=== PATIENT | male | born 1945 | race Caucasian/White ===

== ENCOUNTER 2016-08-04 11:34 | Inpatient (IN) | payer OTHER ==
[2016-08-04] MEDS ORDERED: ASPIRIN EC 325 MG TAB PO ONE (11:42)
[2016-08-04] MEDS ORDERED: NS 1,000 ML IV ONE (11:42)
[2016-08-04] MEDS ORDERED: diphenhydrAMINE 25 MG CAP PO ONE (11:42)
[2016-08-04] MEDS ORDERED: FAMOTIDINE 20 MG TAB PO ONE (11:42)
[2016-08-04] MEDS ORDERED: DIAZEPAM 5 MG TAB PO ONE (11:42)
--- NOTE | 2016-08-04 11:56 | CPEKG ---
Heart Rate: 58 RR Interval: 1034 P-R Interval: 232 QRSD Interval: 150 QT Interval: 472 QTC Interval: 464 P Wayan: 12 QRS Wayan: 56 T Wave Wayan: 29 EKG Severity - ABNORMAL ECG - EKG Impression: ATRIAL-SENSED VENTRICULAR-PACED RHYTHM Electronically Signed By: Alfa Fung 05-Aug-2016 13:02:42
[2016-08-04 12:13] LABS: % IMMATURE GRANULYOCYTES 0.2 % (0.0-1.1); ABSOLUTE IMMATURE GRANULOCYTES 0.01 10^3/uL (0.00-0.10); ADD DIFF? NO; ADD MORPH? NO; ADD SCAN? NO; ATYPICAL LYMPHOCYTE FLAG 0 (0-99); FRAGMENT RBC FLAG 0 (0-99); HEMATOCRIT 46.7 % (40.0-51.0); HEMOGLOBIN 15.7 g/dL (13.7-17.5); LEFT SHIFT FLG 0 (0-99); LIPEMIA HEMOLYSIS FLAG 80 (0-99); MEAN CELL HEMOGLOBIN 31.2 pg (27.9-34.1); MEAN CELL HEMOGLOBIN CONCENTR. 33.6 g/dL (32.4-36.7); MEAN CELL VOLUME 92.7 fL (81.5-99.8); MEAN PLATELET VOLUME 10.3 fL (8.7-11.7); PLATELET CLUMPS FLAG 0 (0-99); PLATELET COUNT 184 10^3/uL (150-400); RED BLOOD CELL COUNT 5.04 10^6/uL (4.40-6.38); RED CELL DISTRIBUTION WIDTH 12.7 % (11.5-15.2)
[2016-08-04] MEDS ORDERED: LIDOCAINE 1% 30 ML SDV ONE (12:17)
[2016-08-04] MEDS ORDERED: fentaNYL 100 MCG/2 ML INJ ONE (12:18)
[2016-08-04] MEDS ORDERED: MIDAZOLAM 2 MG/2 ML VIAL ONE ×2 (12:18→13:56)
[2016-08-04] MEDS ORDERED: IOPAMIDOL (ISOVUE 370) 100 ML BTL IV ONE (12:18)
[2016-08-04 12:27] LABS: INR 0.98 (0.83-1.16); PROTIME(PATIENT) 12.9 SEC (12.0-15.0)
[2016-08-04 12:39] LABS: ANION GAP 12 mEq/L (8-16); CALCIUM 9.3 mg/dL (8.5-10.4); CARBON DIOXIDE 24 mEq/l (22-31); CHLORIDE 104 mEq/L (97-110); CHOLESTEROL 147 mg/dL (140-220); CHOLESTEROL/HDL RATIO 2.49 RATIO (1.00-4.97); CREATININE 1.5 mg/dL (0.7-1.3); GLOMERULAR FILTRATION RATE 46; GLUCOSE 95 mg/dL (70-100); HIGH DENSITY LIPOPROTEIN 59 mg/dL (40-65); LDL/HDL RATIO 1.27 RATIO (1.00-3.64); LOW DENSITY LIPOPROTEIN 75 mg/dL (80-100); MAGNESIUM 2.3 mg/dL (1.6-2.3); NON-HIGH DENSITY LIPOPROTEIN 88 mg/dL (90-129); POTASSIUM 4.4 mEq/L (3.5-5.2); SODIUM 140 mEq/L (134-144); TRIGLYCERIDE 67 mg/dL (40-150); VERY LOW DENSITY LIPOPROTEINS 13 mg/dL (8-25)
[2016-08-04] MEDS ORDERED: VERAPAMIL 5 MG/2 ML VIAL ONE (13:17)
[2016-08-04] MEDS ORDERED: HEPARIN 10,000 UNIT/10 ML MDV ONE (13:17)
[2016-08-04] MEDS ORDERED: NITROGLYCERIN 1,500 MCG/15 ML VIAL MISC ONE (14:14)
[2016-08-04] MEDS ORDERED: NITROGLYCERIN 0.4 MG BTL SL PRN (14:42)
[2016-08-04] MEDS ORDERED: ONDANSETRON 4 MG/2 ML VIAL IVP PRN (14:42)
[2016-08-04] MEDS ORDERED: ATROPINE SULFATE 1 MG/10 ML SYR IVP PRN (14:42)
--- NOTE | 2016-08-04 14:42 | PDDXCAT ---
Diagnostic Cath Note - . Date: 08/04/16 Security Guard: [employer] Mechanical Engineer: Bogdan Indication: Non-sustained (<30 sec) polymorphic ventricular tachycardia High-risk criteria on non-invasive testing: stress-induced large perfusion defect (particularly if anterior) - Procedure Access: right wrist Procedure: left heart catheterization, coronary angiography, left ventriculogram - Materials Left Heart Cath size: 5F Left Heart Cath materials: JL3.5, JR4.0, pigtail Right Heart Cath size: 5F - Findings-Left Heart Catheterization LM: The left main is a large caliber vessel. Prior to injection of contrast dye calcium is appreciated. There is a distal eccentric 20% lesion that appears to involve the ostium of the circumflex. LAD: Large caliber transapical vessel. There is a long area of severe disease in the proximal and mid vessel up to 80-90%. This lesion appears to involve the origin of a high diagonal branch or possibly a ramus intermedius branch that is occluded proximally with ipsilateral collateralization and ANTELMO 2 flow. This vessel is a large bifurcating vessel that supplies a significant portion of the lateral wall. LCX: Large caliber vessel. 2 obtuse marginal branches are noted. In the EARNEST caudal view there appears to be a high-grade ostial lesion up to 80% that involves the distal left main lesion previously described. RCA: Dominant. The PDA and a small posterolateral cascade are noted. There are luminal irregularities with no obstructive lesions. EDP: 15 mmHg. LVEF: 40%. Moderate global hypokinesis with severe anterolateral hypokinesis. - Findings-Right Heart Catheterization AO: 126/65 mmHg. Complications: None. Estimated blood loss: <50ml Closure method: TR Band Assessment: Multivessel coronary artery disease. There is a complex high-grade lesion involving the proximal and mid LAD. Additionally, there is a large either diagonal branch or ramus intermedius branch that is proximally occluded with ipsilateral collaterals. There is a distal left main lesion which appears to involve the ostium of the circumflex resulting in a high-grade ostial circumflex lesion. The ejection fraction is modestly reduced at 40%. Clinically, he has presented with nonsustained ventricular tachycardia and a markedly abnormal nuclear stress test. Plan: He will be referred to cardiothoracic surgery for consideration of multivessel bypass surgery. Intervention: None.
[2016-08-04] MEDS: TAMSULOSIN HCL 0.4 MG CAP PO SCH (20:14)
[2016-08-05] MEDS ORDERED: ATORVASTATIN CALCIUM 10 MG TAB PO SCH (09:00)
[2016-08-05] MEDS: ASPIRIN 81 MG CHEWABLE TAB PO SCH (09:05)
[2016-08-05] MEDS ORDERED: MUPIROCIN 2% 22 GM OINT NS ONE (11:38)
[2016-08-05 14:07] LABS: HEMOGLOBIN A1C 5.5 % (4.0-6.0)
--- NOTE | 2016-08-05 16:59 | GCON ---
[f rep st] CONSULTATION DATE OF CONSULTATION: 08/05/2016 REFERRING PHYSICIAN: Luis Alberto Walker MD Patient seen at the request of Dr. Maury Walker with the patient's permission. IMPRESSION: 1. Severe 3-vessel disease with nonsustained ventricular tachycardia with activity and severely abn ormal noninvasive testing. 2. Moderate left ventricular dysfunction with ejection fraction of 40%. 3. Status post permanent pacemaker with pacemaker dependence. 4. Hypercholesterolemia. 5. BPH. 6. Chronic renal insufficiency. 7. Hypertension. 8. Status post hernia surgery and pacemaker surgery. RECOMMENDATIONS: This gentleman should undergo urgent coronary artery revascularization given his l eft main and severe 2-vessel disease. He and his were advised of the same. We spent approxima tely 45 minutes discussing risks per consent and complications. The patient and his are agreea ble to proceed with surgery in the morning. Alternatives include continued medical therapy and very high risk stenting because of left main and ostial circ, and LAD disease. They are agreeable to pr oceed with surgery. CHIEF COMPLAINT: A very active, very healthy 71-year-old gentleman who presented with nonsustained ventricular tachycardia noted on his permanent pacemaker. Because of that, he underwent noninvasive testing. He denies anginal symptoms or shortness of breath. He had markedly abnormal noninvasive testing, underwent diagnostic left heart cath, and was noted to have severe 2-vessel disease with le ft main stenosis. He was referred for surgical intervention. MEDICAL HISTORY: As stated. MEDICATIONS: Amlodipine, aspirin, atorvastatin, folic acid, multivitamin, Osteo Bi-Flex, tamsulosin , and vitamin D3. ALLERGIES: Denied. FAMILY HISTORY: Noncontributory. SOCIAL HISTORY: He exercises aggressively 5 days a week. He drinks 1 glass of wine each night. He is a nonsmoker. REVIEW OF SYSTEMS: At the present time, he is entirely asymptomatic. PHYSICAL EXAMINATION: GENERAL: Slender, well fit, middle-aged gentleman in no apparent distress, a ccompanied by his and brother. VITAL SIGNS: 126/74, pulse 70, respirations 14, O2 saturation w as 96% on room air. HEENT: Normocephalic, PERRLA, EOMI. NECK: Without bruits. Carotid ultrasoun ds without significant obstruction. CARDIAC: Heart rate is regular without murmur. LUNGS: Clear. ABDOMEN: Soft, nontender. Bowel sounds are active. RECTAL AND GENITAL: Deferred. NEUROLOGIC: He is grossly intact. DIAGNOSTIC STUDIES: Echo reveals good LV function with ejection fraction of 55-60, trace aortic, mi ld mitral, and mild tricuspid regurgitation. Otherwise, no significant abnormalities. /[id number]/MODL
--- NOTE | 2016-08-05 18:01 | PDCARPN ---
Cardiology Progress Note Assessment/Plan: 74-year-old generally healthy and fit male with a history of heart block and prior pacemaker implantation. Referred for cardiac catheterization because of nonsustained ventricular tachycardia seen on pacemaker interrogation. Cardiac catheterization yesterday demonstrated multivessel CAD. Now awaiting CABG. Coronary Artery Disease: High grade disease of the mid LAD. Occluded and collateralized large bifurcating diagonal branch. Probable high grade ostial circumflex disease. Scheduled for CABG tomorrow. Continue aggressive secondary prevention postop. Nonsustained Ventricular Tachycardia: Likely ischemic mediated. Beta polina therapy postop. Continue the use of pacemaker interrogations the monitor for recurrences. Complete Heart Block: h/o dual chamber pacemaker. No issues. 08/05/16 18:01 Subjective: No complaints. Reviewed/Discussed With: family Objective: Vital Signs (8 Hrs) Temp Pulse Pulse Pulse Pulse Resp BP 08/05/16 16:00 36.8 C 60 17 109/71 08/05/16 12:00 36.7 C 55 L 17 125/71 H 08/05/16 10:07 60 71 58 L BP BP BP Pulse Ox 08/05/16 16:00 96 08/05/16 12:00 96 08/05/16 10:07 116/75 114/70 109/65 Intake/Output (24 Hrs) 08/04/16 08/05/16 08/06/16 05:59 05:59 05:59 Intake Total 900 100 Balance 900 100 Intake: Oral (ml) 900 100 Other: Weight 78.5 kg Number of Voids Toilet 2 Result Diagrams: 08/04/16 12:05 08/04/16 12:05 - Physical Exam Constitutional: WDWN, healthy appearing, no apparent distress Eyes: anicteric sclera Ears, Nose, Mouth, Throat: moist mucous membranes Cardiovascular: regular rate and rhythm, no murmurs, no gallops Respiratory: clear to auscultate bilat Gastrointestinal: normoactive bowel sounds, no tenderness, no masses Skin: no rashes, no edema Neurologic: AAOx3 Psychiatric: not anxious ICD10 Worksheet Patient Problems: Problems Problem Status Onset Coronary artery disease Acute - ICD10 Problem Qualifiers (1) Coronary artery disease Qualifiers: Coronary Disease-Associated Artery/Lesion type: C [place] vs. transplanted heart: N Associated angina: A
[2016-08-05] MEDS: TAMSULOSIN HCL 0.4 MG CAP PO SCH ×2 (18:57→20:59)
[2016-08-05] MEDS: ATORVASTATIN CALCIUM 10 MG TAB PO SCH (20:59)
[2016-08-05] MEDS ORDERED: CHLORHEXIDINE GLUC HIBICLENS 118 ML BTL TP SCH (21:00)
[2016-08-06 05:07] LABS: ANION GAP 9 mEq/L (8-16); CALCIUM 9.3 mg/dL (8.5-10.4); CARBON DIOXIDE 26 mEq/l (22-31); CHLORIDE 107 mEq/L (97-110); CREATININE 1.6 mg/dL (0.7-1.3); GLOMERULAR FILTRATION RATE 43; GLUCOSE 88 mg/dL (70-100); POTASSIUM 4.5 mEq/L (3.5-5.2); SODIUM 142 mEq/L (134-144)
[2016-08-06] MEDS ORDERED: MANNITOL 25% 12.5 GM/50 ML VIAL IV ONE (06:00)
[2016-08-06] MEDS ORDERED: INSULIN REGULAR HUMAN 100 UNIT in NS 100 ML IV ONE (06:00)
[2016-08-06] MEDS ORDERED: PHENYLEPHRINE HCL 50 MG in NS 250 ML IV ONE (06:00)
[2016-08-06] MEDS ORDERED: NOREPINEPHRINE BITARTRATE 16 MG in NS 250 ML IV ONE (06:00)
[2016-08-06] MEDS ORDERED: VERAPAMIL 5 MG, NITROGLYCERIN 2.5 MG, HEPARIN 500 UNIT, SODIUM BICARBONATE 0.2 MEQ in L... MISC ONE (06:00)
[2016-08-06] MEDS ORDERED: AMINOCAPROIC ACID 5 GM/20 ML VIAL IV ONE (06:00)
[2016-08-06] MEDS ORDERED: SODIUM BICARBONATE 20 MEQ, LIDOCAINE 1% 10 ML in NORMOSOL-R 1,000 ML MISC ONE (06:00)
[2016-08-06] MEDS ORDERED: CITRATE DEXTROSE SOLN 500 ML BAG MISC ONE (06:00)
[2016-08-06] MEDS ORDERED: NS 1,000 ML IV ONE (06:00)
[2016-08-06] MEDS ORDERED: niCARdipine/NACL 200 ML IV SCH (06:00)
[2016-08-06] MEDS ORDERED: ceFAZolin 2 GM/DEXTROSE 100 ML IV ONE (06:00)
[2016-08-06] MEDS ORDERED: PROTAMINE SULFATE 50 MG/5 ML VIAL IVP ONE (06:16)
[2016-08-06] MEDS ORDERED: CALCIUM CHLORIDE 1 GM/10 ML INJ ONE ×2 (06:16→06:20)
[2016-08-06] MEDS ORDERED: AMINOCAPROIC ACID 5 GM/20 ML VIAL ONE ×2 (06:17→06:20)
[2016-08-06] MEDS ORDERED: NA BICARBONATE 50 MEQ/50 ML VIAL ONE (06:17)
[2016-08-06] MEDS ORDERED: MILRINONE/DEXTROSE/100 ML BAG IV ONE (06:17)
[2016-08-06] MEDS ORDERED: POTASSIUM Cl (KCl) 20 MEQ/50 ML BAG IV ONE (06:17)
[2016-08-06] MEDS ORDERED: niCARdipine/NACL/200 ML BAG IV ONE (06:18)
[2016-08-06] MEDS ORDERED: AMIODARONE HCL 150 MG/3 ML VIAL ONE ×2 (06:18→06:20)
[2016-08-06] MEDS ORDERED: ADENOSINE 6 MG/2 ML VIAL ONE (06:18)
[2016-08-06] MEDS ORDERED: DOPamine/DEXTROSE/250 ML BAG IV ONE (06:18)
[2016-08-06] MEDS ORDERED: ceFAZolin 1 GM VIAL ONE (06:19)
[2016-08-06] MEDS ORDERED: ALBUMIN 5% 250 ML BOTTLE IV ONE (06:19)
[2016-08-06] MEDS ORDERED: HEPARIN 10,000 UNIT/10 ML MDV ONE ×3 (06:19→08:26)
[2016-08-06] MEDS ORDERED: methylPREDNISolone SOD SUCC 1 GM/8 ML VIAL ONE (06:20)
[2016-08-06] MEDS ORDERED: CITRATE DEXTROSE SOLN 500 ML BAG ONE (06:20)
[2016-08-06] MEDS ORDERED: MAGNESIUM SULFATE 1 GM/2 ML VIAL ONE (06:20)
[2016-08-06] MEDS ORDERED: LIDOCAINE 2% 100 MG/5 ML SYR ONE ×2 (06:20→07:21)
[2016-08-06] MEDS ORDERED: MINERAL OIL 10 ML VIAL TP ONE (06:51)
[2016-08-06] MEDS ORDERED: PAPAVERINE HCL 60 MG/2 ML SDV ONE (06:52)
[2016-08-06] MEDS ORDERED: VERAPAMIL 5 MG/2 ML VIAL ONE (06:52)
[2016-08-06] MEDS ORDERED: MIDAZOLAM 2 MG/2 ML VIAL ONE ×3 (07:02→07:18)
[2016-08-06] MEDS ORDERED: fentaNYL 250 MCG/5 ML INJ ONE (07:18)
[2016-08-06] MEDS ORDERED: PROPOFOL/EMULSION 500 MG/50 ML BOTTLE IV ONE (07:18)
[2016-08-06] MEDS ORDERED: REMIFENTANIL HCL 1 MG VIAL ONE (07:18)
[2016-08-06] MEDS ORDERED: ROCURONIUM 100 MG/10 ML VIAL ONE (07:19)
[2016-08-06] MEDS ORDERED: ROCURONIUM 50 MG/5 ML VIAL ONE (07:19)
[2016-08-06] MEDS ORDERED: DEXAMETHASONE 4 MG/ML VIAL ONE ×2 (07:19)
[2016-08-06] MEDS ORDERED: ONDANSETRON 4 MG/2 ML VIAL ONE (07:19)
[2016-08-06] MEDS ORDERED: epHEDrine SULFATE 10 MG/ML SYR ONE ×2 (07:36→10:13)
[2016-08-06] MEDS ORDERED: PHENYLEPHRINE HCL 100 MCG/ML SYR ONE ×2 (08:29→10:13)
[2016-08-06] MEDS ORDERED: MAGNESIUM SULF 2 GM/WATER 50 ML BAG IV ONE (10:35)
[2016-08-06] MEDS ORDERED: SUGAMMADEX SODIUM 200 MG/2 ML VIAL IVP ONE (10:51)
[2016-08-06] MEDS: ASPIRIN 81 MG CHEWABLE TAB PO SCH (10:57)
[2016-08-06] MEDS: MUPIROCIN 2% 22 GM OINT NS SCH ×2 (10:58→21:09)
[2016-08-06] MEDS ORDERED: fentaNYL 100 MCG/2 ML INJ ONE (10:59)
[2016-08-06] MEDS ORDERED: NS 1,000 ML IV SCH (11:00)
--- NOTE | 2016-08-06 11:12 | POSTOPPROG ---
Post Op Note Date of Operation: 08/06/16 Surgeon: Landon Garcia Drop Board Worker: Thelma Anesthesiologist: Bob Anesthesia: GET(General Endotracheal) Pre-op Diagnosis: ASHD Procedure: Peña-Lad, Sima-dg, [id number], Atriclip, EVH Inf/Abcess present in the surg proc area at time of surgery?: No EBL: 50-100 Drains: Other (3 blakes)
[2016-08-06] MEDS ORDERED: SODIUM CL NASAL 45 ML BTL EACHNARE PRN (11:30)
[2016-08-06] MEDS ORDERED: POLYETHYLENE GLYCOL 3350 17 GM PKT PO PRN (11:30)
[2016-08-06] MEDS ORDERED: PANTOPRAZOLE SODIUM 40 MG in NS 100 ML IV ONE (11:30)
[2016-08-06] MEDS ORDERED: POTASSIUM Cl (KCl) 50 ML IV PRN (11:30)
[2016-08-06] MEDS ORDERED: MAGNESIUM HYDROXIDE 30 ML UDCUP PO PRN (11:30)
[2016-08-06] MEDS ORDERED: LACTULOSE 20 GM/30 ML UDCUP PO PRN (11:30)
[2016-08-06] MEDS ORDERED: METOCLOPRAMIDE 10 MG/2 ML VIAL IVP PRN (11:30)
[2016-08-06] MEDS ORDERED: INSULIN REGULAR HUMAN 100 UNIT in NS 100 ML IV SCH (11:30)
[2016-08-06] MEDS ORDERED: ACETAMINOPHEN 650 MG SUPP PR PRN (11:30)
[2016-08-06] MEDS ORDERED: BISACODYL 10 MG SUPP PR PRN (11:30)
[2016-08-06] MEDS ORDERED: ACETAMINOPHEN 325 MG TAB PO PRN (11:30)
[2016-08-06] MEDS ORDERED: MEPERIDINE 25 MG/ML SYR IVP PRN (11:30)
[2016-08-06] MEDS ORDERED: D50W 25 GM/50 ML SYR IVP PRN (11:30)
[2016-08-06] MEDS ORDERED: CEPACOL LOZENGE PO PRN (11:30)
--- NOTE | 2016-08-06 11:47 | GOP ---
[f rep st] OPERATIVE REPORT DATE OF OPERATION: 08/06/2016 SURGEON: Landon Garcia DO COTTON GROWER: Cristhian Renee PA-C. ANESTHESIOLOGIST: Paulo Rojas MD. PREOPERATIVE DIAGNOSIS: Arteriosclerotic heart disease. POSTOPERATIVE DIAGNOSIS: Arteriosclerotic heart disease. PROCEDURE PERFORMED: 1. Coronary artery bypass grafting x4 with the left internal mammary artery to the left anterior de scending, right internal mammary artery to the diagonal via the transverse sinus, saphenous vein gra ft to the 1st obtuse marginal, sequential 2nd obtuse marginal. 2. Atra clip the left atrial appendage. 3. Endoscopic vein harvest. FINDINGS: DESCRIPTION OF PROCEDURE: Patient was consented for surgery, brought to the operating room, intubat ed, monitoring lines were placed. He was prepped and draped in a sterile classical manner. A acosta otomy was performed. Both mammaries were harvested which were excellent 2.5-3 mm vessels with brisk flow. Endoscopic vein was harvested by ABEL Reyes, from the left upper thigh and measured 3.5 mm and was considered excellent quality. The pericardium was opened. He was heparinized, cannulated trans esophageal echo revealed mild mitral insufficiency with trace aortic insufficiency, but an ejection fraction of approximately 40% to 45% with no segmental abnormalities. Cardiopulmonary bypass was be gun. A Cardioplegic arrest was obtained with antegrade, cardioplegia topical hypothermia and system ic cooling. Initially, the 2 circumflex branches, which measured 3 mm in diameter were sequentially grafted with a piece of vein graft which was brought off the ascending aorta with a cross-clamp on. We then brought the right internal mammary artery through a lateral pericardial incision beneath t he aorta in the transverse sinus and grafted it to the proximal diagonal graft which was a 2 mm to 2 .5 mm vessel. It was tacked to the epicardium and had excellent flow. I then grafted the mammary t o the distal LAD. It was a deeply intramuscular vessel and it was grafted where it came out of the septum. Despite attempts to find it intracardiac, we ended up grafting it distally where it was a 2 mm vessel. It was tacked to the epicardium. I then placed an Atra clip across the left atrial artemio endage prophylactically. Cross-clamp was removed with suction on the ascending aortic vent. Sponta neous cardiac activity was noted to resume. Patient was rewarmed, weaned from bypass. Heparin was reversed with protamine. The cannula was removed and oversewn. 2 ventricular pacing wires, 2 pleur al and 1 mediastinal drain were placed. The thymic fat and pericardium were closed. Chest was clos ed in a standard fashion. Patient was returned to ICU in stable condition. /[id number]/MODL
[2016-08-06 11:53] LABS: HEMATOCRIT 37.4 % (40.0-51.0); HEMOGLOBIN 12.7 g/dL (13.7-17.5); MEAN CELL HEMOGLOBIN 31.6 pg (27.9-34.1); RED BLOOD CELL COUNT 4.02 10^6/uL (4.40-6.38); RED CELL DISTRIBUTION WIDTH 12.7 % (11.5-15.2)
[2016-08-06] MEDS ORDERED: KETOROLAC 30 MG/1 ML SDV ONE (11:57)
[2016-08-06] MEDS ORDERED: LORazepam 2 MG/ML INJ ONE ×2 (11:57→12:04)
[2016-08-06] MEDS ORDERED: SODIUM BICARBONATE 50 MEQ/50 ML SYR ONE (11:59)
[2016-08-06 12:03] LABS: CALCULATED OXYGEN SATURATION 93 % (92-95)
[2016-08-06] MEDS ORDERED: KETOROLAC 30 MG/1 ML SDV IVP ONE (12:30)
[2016-08-06] MEDS ORDERED: LORazepam 2 MG/ML INJ IVP ONE (12:30)
[2016-08-06] MEDS ORDERED: DEXMEDETOMIDINE HCL 400 MCG in NS 100 ML IV SCH (12:30)
[2016-08-06] MEDS: ALBUMIN 5% 250 ML IV PRN ×2 (12:49→18:34)
[2016-08-06] MEDS ORDERED: SODIUM BICARBONATE 50 MEQ/50 ML SYR IVP ONE (13:30)
--- NOTE | 2016-08-06 13:48 | CPEKG ---
Heart Rate: 80 RR Interval: 750 P-R Interval: 224 QRSD Interval: 146 QT Interval: 428 QTC Interval: 494 P Roebling: 82 QRS Roebling: 82 T Wave Roebling: 63 EKG Severity - ABNORMAL ECG - EKG Impression: VENTRICULAR-PACED COMPLEXES Electronically Signed By: Alfa Fung 06-Aug-2016 20:43:09
--- NOTE | 2016-08-06 13:57 | GCON ---
[f rep st] CONSULTATION DISH CARRIER CONSULTATION The patient was examined postoperatively after receiving coronary bypass graft. HISTORY OF PRESENT ILLNESS: The patient is a 71-year-old white male with a past medical history inc luding hypertension, chronic renal insufficiency, benign prostatic hypertrophy, he has a permanent p acemaker, hypercholesterolemia. He also has three-vessel coronary artery disease. He is examined p ostoperatively after receiving coronary bypass graft. The patient is currently still sedated from urgery. All history is gleaned from the medical record. Postoperatively, he was somewhat agitated. He is currently extubated and resting comfortably on supplemental oxygen. PAST MEDICAL HISTORY: Again, significant for coronary artery disease, congestive heart failure, pac emaker placement, hypercholesterolemia, benign prostatic hypertrophy, chronic renal insufficiency, h ypertension. PAST SURGICAL HISTORY: He has had a hernia repair and pacemaker placement. ALLERGIES: No known allergies to medications. SOCIAL HISTORY: No history of tobacco use. He drinks a glass of wine per night. He exercises fair ly regularly. MEDICATIONS: At home include amlodipine, aspirin, atorvastatin, folic acid, multivitamin, Osteo Bi- Flex, tamsulosin, and vitamin D3. PHYSICAL EXAM: VITAL SIGNS: Blood pressure is 120/67, pulse 70, respirations 16, temperature 36.5, oxygen saturation 96% on room air. GENERAL: He is a well-developed, well-nourished elderly white male resting comfortably in no acute distress. HEENT: Eyes: TYSON. EOMI. Throat shows no erythem a or tonsillar hypertrophy. NECK: Supple. There is no cervical adenopathy. HEART: Regular rate and rhythm with a 2/6 systolic murmur at the left sternal border without radiation. LUNGS: Diminis hed breath sounds but few bibasilar crackles. ABDOMEN: Soft, nontender. Bowel sounds present in a ll 4 quadrants. EXTREMITIES: No clubbing, cyanosis, or edema. LABORATORY DATA: White count is 14, hemoglobin 12, hematocrit 37, platelet count is 109. Sodium 14 2, potassium 5.1, chloride 109, CO2 26, BUN 27, creatinine 1.6, glucose is 173. Arterial blood gas: pH 7.25, pCO2 47, PO2 of 80, bicarb 22, oxygen saturation is 93%. IMPRESSION: 1. Coronary artery disease. 2. Status post coronary artery bypass graft. 3. Hypertension. 4. Benign prostatic hypertrophy. 5. Pacemaker placement. RECOMMENDATIONS: 1. Wean FiO2 as tolerated. 2. DVT and PE prophylaxis. Holding anticoagulation for now. 3. Stress ulcer prophylaxis. 4. Aggressive blood sugar control. 5. Adequate pain control. 6. PT and OT. 7. Early ambulation. /[id number]/MODL
[2016-08-06 17:14] LABS: BASE EXCESS -2.8 mEq/L (-2.5-2.5); BICARBONATE 23 mEq/L (22-26); MEASURED OXYGEN SATURATION 98 % (92-95); PCO2 44 mmHg (34-38); PO2 104 mmHg (65-75); TCO2 24 mEq/L (23-27)
[2016-08-06 18:35] LABS: CALCULATED OXYGEN SATURATION 94 % (92-95)
[2016-08-06] MEDS: ceFAZolin 2 GM/DEXTROSE 100 ML IV SCH (21:09)
[2016-08-06] MEDS: HYDROCODONE/APAP 5/325 TAB PO PRN (21:55)
[2016-08-07] MEDS: ALBUMIN 5% 250 ML IV PRN (00:58)
[2016-08-07] MEDS ORDERED: DOPamine/DEXTROSE/250 ML BAG IV ONE (02:21)
[2016-08-07] MEDS: HYDROCODONE/APAP 5/325 TAB PO PRN (02:24)
[2016-08-07 04:18] LABS: % IMMATURE GRANULYOCYTES 0.4 % (0.0-1.1); ABSOLUTE IMMATURE GRANULOCYTES 0.04 10^3/uL (0.00-0.10); ADD DIFF? NO; ADD MORPH? NO; ADD SCAN? NO; ATYPICAL LYMPHOCYTE FLAG 0 (0-99); FRAGMENT RBC FLAG 0 (0-99); HEMATOCRIT 32.4 % (40.0-51.0); HEMOGLOBIN 10.9 g/dL (13.7-17.5); LEFT SHIFT FLG 40 (0-99); LIPEMIA HEMOLYSIS FLAG 80 (0-99); MEAN CELL HEMOGLOBIN 31.7 pg (27.9-34.1); MEAN CELL HEMOGLOBIN CONCENTR. 33.6 g/dL (32.4-36.7); MEAN CELL VOLUME 94.2 fL (81.5-99.8); MEAN PLATELET VOLUME 10.6 fL (8.7-11.7); PLATELET CLUMPS FLAG 0 (0-99); PLATELET COUNT 106 10^3/uL (150-400); RED BLOOD CELL COUNT 3.44 10^6/uL (4.40-6.38)
[2016-08-07 04:33] LABS: ANION GAP 5 mEq/L (8-16); CALCIUM 8.1 mg/dL (8.5-10.4); CARBON DIOXIDE 23 mEq/l (22-31); CHLORIDE 114 mEq/L (97-110); CREATININE 1.3 mg/dL (0.7-1.3); GLOMERULAR FILTRATION RATE 55; GLUCOSE 96 mg/dL (70-100); POTASSIUM 4.8 mEq/L (3.5-5.2); SODIUM 142 mEq/L (134-144)
[2016-08-07] MEDS: OXYCODONE/APAP 5/325 TAB PO PRN ×3 (05:15→17:44)
[2016-08-07] MEDS: HEPARIN 5,000 UNIT/0.5 ML SYR SC SCH ×3 (05:18→21:03)
--- NOTE | 2016-08-07 07:39 | SOAPPROG ---
SOAP Progress Note Assessment/Plan: POD #1: CABGx4 (BHAT-LAD, TOBY-Diag, sequential SVG-OM1-OM2), prophylactic exclusion of GIDEON with AtriClip, EVH LLE Severe 3VD with non-sustained VT s/p urgent CABGx4 - weaned from CPB without difficulty and extubated in the OR. No blood products transfused, 2 mcgs of dopamine started overnight for higher renal perfusion and weaned off this AM - Secondary prevention with BB when better BP, ASA, and statin - CTs to bulb suction, AL/FC out - SCDs/heparin SQ for DVT prophylaxis - OOB/ambulation - OK for transfer to PCU Acute blood loss anemia without need for blood transfusion - Stable, monitor ICM with reduced EF of 40-45% and improvement in systolic function post- operatively - JEREMY, BB, Lasix when appropriate h/o heart block s/p PPM implantation - Stable, further mgmt as per cardiology CKD with pre-op Cr of 1.6, 1.5 on admission - Cr 1.3 this AM with adequate UOP, monitor BPH - Continue Flomax Subjective: c/o pain all over and denies SOB Objective: Vital Signs Temp Pulse Resp BP Pulse Ox 37.4 C 94 19 96/56 L 100 08/07/16 06:00 08/07/16 07:00 08/07/16 07:00 08/07/16 07:00 08/07/16 07:00 Laboratory Results 08/07/16 04:00 08/07/16 04:00 08/06/16 08/07/16 08/08/16 05:59 05:59 05:59 Intake Total 1290 3119.6 Output Total 3195 Balance 1290 -75.4 PT 12.9 SEC (12.0-15.0) 08/04/16 12:05 INR 0.98 (0.83-1.16) 08/04/16 12:05 Physical Exam - Physical Exam General Appearance: WD/WN, alert, mild distress EENT: normal ENT inspection Neck: normal inspection Respiratory: No respiratory distress Cardiac/Chest: other (AV paced) Abdomen: non-tender, soft, No distended Skin: normal color, warm/dry Extremities: No pedal edema Neuro/Psych: no motor/sensory deficits, alert, normal mood/affect, oriented x 3 ICD10 Worksheet Patient Problems: Problems Problem Status Onset Acute blood loss anemia Acute Coronary artery disease Acute S/P CABG x 4 Acute ~08/06/16
[2016-08-07] MEDS ORDERED: ALBUMIN 5% 250 ML IV ONE (08:30)
[2016-08-07] MEDS: ceFAZolin 2 GM/DEXTROSE 100 ML IV SCH ×2 (08:33→20:46)
--- NOTE | 2016-08-07 09:11 | PDINTPN ---
Supply And Distribution Manager Progress Note Assessment/Plan: Assessment/Plan: * Coronary artery disease * Status post coronary bypass graft * Respiratory-stable off mechanical ventilation * Hypertension-blood pressure controlled * Benign prostatic hypertrophy * Pacemaker * VTE prophylaxis * Stress ulcer prophylaxis * PT/OT * Ambulation Subjective: Sitting up in chair. Patient complains of pain especially with deep inspiration or cough. His breathless is minimal Objective: Vital Signs Temp Pulse Resp BP Pulse Ox 37.4 C 94 19 96/56 L 100 08/07/16 06:00 08/07/16 07:00 08/07/16 07:00 08/07/16 07:00 08/07/16 07:00 Laboratory Results 08/07/16 04:00 08/07/16 04:00 08/06/16 08/07/16 08/08/16 05:59 05:59 05:59 Intake Total 1290 3119.6 Output Total 3195 Balance 1290 -75.4 PT 12.9 SEC (12.0-15.0) 08/04/16 12:05 INR 0.98 (0.83-1.16) 08/04/16 12:05 Chest x-ray reviewed by myself. Minimal atelectasis present, possible small apical pneumothorax Physical Exam - Physical Exam General Appearance: alert, no apparent distress EENT: PERRL/EOMI, normal ENT inspection Neck: non-tender, full range of motion, supple, normal inspection Respiratory: chest non-tender, lungs clear, normal breath sounds Cardiac/Chest: normal peripheral pulses, regular rate, rhythm, systolic murmur Peripheral Pulses: 2+: carotid (R), carotid (L), femoral (R), femoral (L), dorsalis-pedis (R), dorsalis-pedis (L) Abdomen: normal bowel sounds, non-tender, soft Male Genitalia: deferred Rectal: deferred Skin: normal color, warm/dry ICD10 Worksheet Patient Problems: Problems Problem Status Onset Acute blood loss anemia Acute Coronary artery disease Acute S/P CABG x 4 Acute ~08/06/16
[2016-08-07] MEDS: PANTOPRAZOLE SODIUM 40 MG TAB PO SCH (09:36)
[2016-08-07] MEDS: ASPIRIN 81 MG CHEWABLE TAB PO SCH (09:37)
[2016-08-07] MEDS ORDERED: ASPIRIN 81 MG CHEWABLE TAB TUBE PRN (10:58)
[2016-08-07] MEDS: traMADol 50 MG TAB PO PRN (13:33)
[2016-08-07] MEDS: MUPIROCIN 2% 22 GM OINT NS SCH ×2 (15:38→20:51)
[2016-08-07] MEDS: TAMSULOSIN HCL 0.4 MG CAP PO SCH (20:46)
[2016-08-07] MEDS: SENNOSIDES/DOCUSATE SODIUM TAB PO SCH (20:47)
[2016-08-08] MEDS: OXYCODONE/APAP 5/325 TAB PO PRN ×6 (00:04→18:32)
[2016-08-08] MEDS: HEPARIN 5,000 UNIT/0.5 ML SYR SC SCH ×3 (05:20→21:01)
[2016-08-08 05:41] LABS: % IMMATURE GRANULYOCYTES 0.5 % (0.0-1.1); ABSOLUTE IMMATURE GRANULOCYTES 0.06 10^3/uL (0.00-0.10); ADD DIFF? NO; ADD MORPH? NO; ADD SCAN? NO; ATYPICAL LYMPHOCYTE FLAG 0 (0-99); FRAGMENT RBC FLAG 0 (0-99); HEMATOCRIT 31.8 % (40.0-51.0); HEMOGLOBIN 10.7 g/dL (13.7-17.5); LEFT SHIFT FLG 30 (0-99); LIPEMIA HEMOLYSIS FLAG 80 (0-99); MEAN CELL HEMOGLOBIN 32.3 pg (27.9-34.1); MEAN CELL HEMOGLOBIN CONCENTR. 33.6 g/dL (32.4-36.7); MEAN CELL VOLUME 96.1 fL (81.5-99.8); MEAN PLATELET VOLUME 10.9 fL (8.7-11.7); PLATELET CLUMPS FLAG 0 (0-99); PLATELET COUNT 107 10^3/uL (150-400); RED BLOOD CELL COUNT 3.31 10^6/uL (4.40-6.38); RED CELL DISTRIBUTION WIDTH 13.6 % (11.5-15.2)
[2016-08-08 06:05] LABS: ANION GAP 6 mEq/L (8-16); CALCIUM 8.4 mg/dL (8.5-10.4); CARBON DIOXIDE 28 mEq/l (22-31); CHLORIDE 105 mEq/L (97-110); CREATININE 1.5 mg/dL (0.7-1.3); GLOMERULAR FILTRATION RATE 46; GLUCOSE 124 mg/dL (70-100); POTASSIUM 4.7 mEq/L (3.5-5.2); SODIUM 139 mEq/L (134-144)
--- NOTE | 2016-08-08 08:05 | SOAPPROG ---
SOAP Progress Note Assessment/Plan: POD #2: CABGx4 (BHAT-LAD, TOBY-Diag, sequential SVG-OM1-OM2), prophylactic exclusion of IGDEON with AtriClip, EVH LLE Severe 3VD with non-sustained VT s/p urgent CABGx4 - - Secondary prevention with BB, ASA, and statin - CT #1 and PW to be dc'd - CTs #2 and #3 not at removal criteria. - SCDs/heparin SQ for DVT prophylaxis - OOB/ambulation Acute blood loss anemia without need for blood transfusion - Stable, monitor ICM with reduced EF of 40-45% and improvement in systolic function post- operatively - JEREMY, BB, Lasix when appropriate h/o heart block s/p PPM implantation - Stable, further mgmt as per cardiology CKD with pre-op Cr of 1.6, 1.5 on admission - Cr 1.5 this AM - at baseline, monitor BPH - Continue Flomax Subjective: pain better this AM Objective: Vital Signs Temp Pulse Resp BP Pulse Ox 36.7 C 87 20 122/74 H 96 08/08/16 07:39 08/08/16 07:39 08/08/16 07:39 08/08/16 07:39 08/08/16 07:39 Laboratory Results 08/08/16 05:35 08/08/16 05:35 08/07/16 08/08/16 08/09/16 05:59 05:59 05:59 Intake Total 3119.6 730 Output Total 3195 1310 Balance -75.4 -580 PT 12.9 SEC (12.0-15.0) 08/04/16 12:05 INR 0.98 (0.83-1.16) 08/04/16 12:05 Physical Exam - Physical Exam General Appearance: WD/WN, alert, no apparent distress EENT: normal ENT inspection Neck: normal inspection Respiratory: No respiratory distress Cardiac/Chest: regular rate, rhythm Abdomen: non-tender, soft, No distended Skin: normal color, warm/dry Extremities: No pedal edema Neuro/Psych: no motor/sensory deficits, alert, normal mood/affect, oriented x 3 ICD10 Worksheet Patient Problems: Problems Problem Status Onset Acute blood loss anemia Acute Coronary artery disease Acute S/P CABG x 4 Acute ~08/06/16
[2016-08-08] MEDS: SENNOSIDES/DOCUSATE SODIUM TAB PO SCH ×2 (08:45→20:50)
[2016-08-08] MEDS: PANTOPRAZOLE SODIUM 40 MG TAB PO SCH (08:48)
[2016-08-08] MEDS: ASPIRIN 81 MG CHEWABLE TAB PO SCH (08:52)
[2016-08-08] MEDS: MUPIROCIN 2% 22 GM OINT NS SCH (08:52)
[2016-08-08] MEDS ORDERED: METOPROLOL TARTRATE 25 MG TAB PO ONE (09:55)
[2016-08-08] MEDS ORDERED: fentaNYL 25 MCG PATCH TD ONE (09:57)
[2016-08-08] MEDS ORDERED: MAGNESIUM CITRATE 300 ML BOTTLE PO ONE (09:59)
[2016-08-08] MEDS: TAMSULOSIN HCL 0.4 MG CAP PO SCH (20:50)
[2016-08-08] MEDS ORDERED: METOPROLOL TARTRATE 25 MG TAB PO SCH (21:00)
[2016-08-08] MEDS: traMADol 50 MG TAB PO PRN (21:01)
[2016-08-08] MEDS: ATORVASTATIN CALCIUM 10 MG TAB PO SCH (21:03)
[2016-08-09] MEDS: OXYCODONE/APAP 5/325 TAB PO PRN ×2 (01:14→21:36)
[2016-08-09] MEDS: ZOLPIDEM TARTRATE 5 MG TAB PO PRN ×2 (01:14→22:44)
[2016-08-09] MEDS: HEPARIN 5,000 UNIT/0.5 ML SYR SC SCH ×3 (05:20→21:35)
[2016-08-09] MEDS: traMADol 50 MG TAB PO PRN ×2 (05:22→17:41)
[2016-08-09 05:52] LABS: % IMMATURE GRANULYOCYTES 0.5 % (0.0-1.1); ABSOLUTE IMMATURE GRANULOCYTES 0.04 10^3/uL (0.00-0.10); ADD DIFF? NO; ADD MORPH? NO; ADD SCAN? NO; ATYPICAL LYMPHOCYTE FLAG 0 (0-99); FRAGMENT RBC FLAG 0 (0-99); HEMATOCRIT 28.6 % (40.0-51.0); HEMOGLOBIN 9.4 g/dL (13.7-17.5); LEFT SHIFT FLG 10 (0-99); LIPEMIA HEMOLYSIS FLAG 80 (0-99); MEAN CELL HEMOGLOBIN 31.4 pg (27.9-34.1); MEAN CELL HEMOGLOBIN CONCENTR. 32.9 g/dL (32.4-36.7); MEAN CELL VOLUME 95.7 fL (81.5-99.8); MEAN PLATELET VOLUME 11.1 fL (8.7-11.7); PLATELET CLUMPS FLAG 10 (0-99); PLATELET COUNT 96 10^3/uL (150-400); RED BLOOD CELL COUNT 2.99 10^6/uL (4.40-6.38); RED CELL DISTRIBUTION WIDTH 13.3 % (11.5-15.2)
[2016-08-09 05:56] LABS: ANION GAP 4 mEq/L (8-16); CALCIUM 8.1 mg/dL (8.5-10.4); CARBON DIOXIDE 30 mEq/l (22-31); CHLORIDE 105 mEq/L (97-110); CREATININE 1.3 mg/dL (0.7-1.3); GLOMERULAR FILTRATION RATE 55; GLUCOSE 102 mg/dL (70-100); POTASSIUM 4.9 mEq/L (3.5-5.2); SODIUM 139 mEq/L (134-144)
--- NOTE | 2016-08-09 07:45 | SOAPPROG ---
SOAP Progress Note Assessment/Plan: POD #3: CABGx4 (BHAT-LAD, TOBY-Diag, sequential SVG-OM1-OM2), prophylactic exclusion of GIDEON with AtriClip, EVH LLE Severe 3VD with non-sustained VT s/p urgent CABGx4 - Secondary prevention with BB, ASA, and statin - SCDs/heparin SQ for DVT prophylaxis - CTs/PW dc'd - OOB/ambulation Acute blood loss anemia without need for blood transfusion - Stable, monitor ICM with reduced EF of 40-45% and improvement in systolic function post- operatively - Continue BB - ACEi/Lasix not warranted h/o heart block s/p PPM implantation - Stable CKD - Stable BPH - Continue Flomax Disposition - Home 08/10 without services Subjective: Slept well last night. Pain better. No SOB. Objective: Vital Signs Temp Pulse Resp BP Pulse Ox 37.1 C 89 16 118/74 95 08/09/16 04:00 08/09/16 04:00 08/09/16 04:00 08/09/16 04:00 08/09/16 04:00 Laboratory Results 08/09/16 05:25 08/09/16 05:25 08/08/16 08/09/16 08/10/16 05:59 05:59 05:59 Intake Total 730 1220 Output Total 1310 2295 90 Balance -580 -1075 -90 PT 12.9 SEC (12.0-15.0) 08/04/16 12:05 INR 0.98 (0.83-1.16) 08/04/16 12:05 Physical Exam - Physical Exam General Appearance: WD/WN, alert, no apparent distress EENT: normal ENT inspection Neck: normal inspection Respiratory: No respiratory distress Cardiac/Chest: regular rate, rhythm, other (paced) Abdomen: non-tender, soft, No distended Skin: normal color, warm/dry Extremities: No pedal edema Neuro/Psych: no motor/sensory deficits, alert, normal mood/affect, oriented x 3 ICD10 Worksheet Patient Problems: Problems Problem Status Onset Acute blood loss anemia Acute Coronary artery disease Acute S/P CABG x 4 Acute ~08/06/16
[2016-08-09] MEDS: PANTOPRAZOLE SODIUM 40 MG TAB PO SCH (08:00)
[2016-08-09] MEDS: ASPIRIN 81 MG CHEWABLE TAB PO SCH (08:00)
[2016-08-09] MEDS: METOPROLOL TARTRATE 25 MG TAB PO SCH ×2 (08:00→21:36)
[2016-08-09] MEDS: SENNOSIDES/DOCUSATE SODIUM TAB PO SCH ×2 (08:00→21:40)
[2016-08-09] MEDS ORDERED: MAGNESIUM CITRATE 300 ML BOTTLE PO ONE (09:27)
[2016-08-09] MEDS: TAMSULOSIN HCL 0.4 MG CAP PO SCH (21:35)
[2016-08-09] MEDS: ATORVASTATIN CALCIUM 10 MG TAB PO SCH (21:36)
[2016-08-10] MEDS: HEPARIN 5,000 UNIT/0.5 ML SYR SC SCH ×2 (06:15→14:00)
[2016-08-10] MEDS: OXYCODONE/APAP 5/325 TAB PO PRN (07:45)
[2016-08-10] MEDS: METOPROLOL TARTRATE 25 MG TAB PO SCH (07:46)
[2016-08-10] MEDS: ASPIRIN 81 MG CHEWABLE TAB PO SCH (07:49)
[2016-08-10] MEDS: PANTOPRAZOLE SODIUM 40 MG TAB PO SCH (07:49)
[2016-08-10] MEDS: SENNOSIDES/DOCUSATE SODIUM TAB PO SCH (08:01)
--- NOTE | 2016-08-10 09:03 | SOAPPROG ---
SOAP Progress Note Assessment/Plan: POD #4: CABGx4 (BHAT-LAD, TOBY-Diag, sequential SVG-OM1-OM2), prophylactic exclusion of GIDEON with AtriClip, EVH LLE Severe 3VD with non-sustained VT s/p urgent CABGx4 - Secondary prevention with BB, ASA, and statin - SCDs/heparin SQ for DVT prophylaxis - OOB/ambulation Acute blood loss anemia without need for blood transfusion - Stable, monitor ICM with reduced EF of 40-45% and improvement in systolic function post- operatively - Continue BB - ACEi/Lasix not warranted h/o heart block s/p PPM implantation - Stable CKD - Stable BPH - Continue Flomax Disposition - Home today Subjective: feels well, finally had a BM Objective: Vital Signs Temp Pulse Resp BP Pulse Ox 37.3 C 88 13 99/57 L 91 L 08/10/16 07:49 08/10/16 07:49 08/10/16 07:49 08/10/16 07:49 08/10/16 07:49 Laboratory Results 08/09/16 05:25 08/09/16 05:25 08/09/16 08/10/16 08/11/16 05:59 05:59 05:59 Intake Total 1220 950 Output Total 2295 440 Balance -1075 510 PT 12.9 SEC (12.0-15.0) 08/04/16 12:05 INR 0.98 (0.83-1.16) 08/04/16 12:05 Physical Exam - Physical Exam General Appearance: WD/WN, alert, no apparent distress EENT: normal ENT inspection Neck: normal inspection Respiratory: normal breath sounds, No respiratory distress Cardiac/Chest: regular rate, rhythm Abdomen: non-tender, soft, No distended Skin: normal color, warm/dry Extremities: No pedal edema Neuro/Psych: no motor/sensory deficits, alert, normal mood/affect, oriented x 3 ICD10 Worksheet Patient Problems: Problems Problem Status Onset Acute blood loss anemia Acute Coronary artery disease Acute S/P CABG x 4 Acute ~08/06/16
[2016-08-10 11:49] VITALS: BP 102/67; PULSE 80; RESP 15; TEMP 98.6; O2SAT 97
[2016-08-10] MEDS: traMADol 50 MG TAB PO PRN (12:36)
--- NOTE | 2016-08-10 14:18 | PDDCSUM ---
Discharge Summary Discharge Summary: ADMISSION DATE: 08/04/16 DISCHARGE DATE: 08/10/16 ADMISSION DX: 1. Severe three-vessel CAD 2. 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 Non-sustained ventricular tachycardia 4. CKD 5. h/o heart block with PPM present 6. BPH DISCHARGE DX: 1. Severe three-vessel CAD 2. 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 Non-sustained ventricular tachycardia 4. CKD 5. h/o heart block with PPM present 6. BPH PROCEDURES 08/06/16, Landon Garcia: 1. CABGx4 (BHAT-LAD, TOBY-Diag, sequential SVG-OM1/OM2) 2. AtriClip left atrial appendage 3. EVH left thigh HOSPITAL COURSE BY PROBLEM LIST 1. Severe three vessel CAD: s/p CABGx4 with stable post-operative course. Beta- polina, aspirin, and statin prescribed for secondary prevention. 2. Ischemic cardiomyopathy with reduced EF: Mild fluid overload post- operatively without the need for diuretics. Beta-polina prescribed on discharge without adequate blood pressure for ACEi. 3. Non-sustained ventricular tachycardia: No post-operative arrhythmias. 4. CKD: Stable renal function throughout hospitalization with Cr at baseline on discharge. 5. Heart block with PPM present: Stable with intermittent pacing. 6. BPH: Home meds resumed without urinary retention. CONDITION - Good DISPOSITION - Home ACTIVITY Pt was instructed on sternal precautions, activity limitations, and which problems to call [facility] with. Please see Discharge Plan in chart for specifics. D/C MEDICATIONS 1. Aspirin [Aspirin 81mg (*)] 81 mg PO DAILY 2. Atorvastatin Calcium [Lipitor 10 mg (*)] 10 mg PO DAILY 3. Cholecalciferol Vit D3 [Vitamin D3 (*)] 1,000 units PO DAILY 4. Herbals/Supplements -Info Only 1 ea PO DAILY 5. Multivitamins [Multivitamin (*)] 1 each PO DAILY 6. Tamsulosin HCl [Flomax 0.4 MG (*)] 0.8 mg PO HS 7. Acetaminophen [Tylenol 325mg (*)] 325 - 650 mg PO Q4HRS PRN 8. Metoprolol Tartrate [Lopressor 25 mg (*)] 25 mg PO BID 9. Sennosides/Docusate Sodium [Senokot-S] 1 - 2 tab PO BID 10. Zolpidem Tartrate [Ambien 5MG (*)] 5 mg PO HS PRN 11. oxyCODONE/APAP 5/325 [Percocet 5/325 (*)] 1 - 2 tab PO Q4HRS PRN 12. traMADol [Ultram 50 mg (*)] 50 - 100 mg PO Q4HRS PRN PENDING STUDIES/LABS 1. BMP and CXR prior to surgical follow-up F/U APPOINTMENTS 1. Landon Garcia - 08/17/16, 9:30 AM 2. Landon Mcfadden - to be determined at surgical follow-up
== END 2016-08-10 14:46 | disposition home or self-care (01) | DRG 234 ==
LOC: FCATH 11:34 → F2W 14:06 → OBSVTOIN 15:17 → F2W 16:06 → F2N 08-06 08:40 → F2W 08-07 16:06
PROVIDERS: ADMIT Thoracic Surgery (Cardiothoracic Vascular Surgery); ATTEND Internal Medicine Cardiovascular Disease
PROC: B2111ZZ Fluoroscopy of Multiple Coronary Arteries using Low Osmolar Contrast (ICD-10-PCS; 2016-08-04)
PROC: 4A023N7 Measurement of Cardiac Sampling and Pressure, Left Heart, Percutaneous Approach (ICD-10-PCS; 2016-08-04)
PROC: B2151ZZ Fluoroscopy of Left Heart using Low Osmolar Contrast (ICD-10-PCS; 2016-08-04)
PROC: 021209W Bypass Coronary Artery, Three Arteries from Aorta with Autologous Venous Tissue, Open Approach (ICD-10-PCS; principal; 2016-08-06 07:15)
PROC: 06BQ4ZZ Excision of Left Saphenous Vein, Percutaneous Endoscopic Approach (ICD-10-PCS; principal; 2016-08-06 07:15)
PROC: 5A1221Z Performance of Cardiac Output, Continuous (ICD-10-PCS; principal; 2016-08-06 07:15)
PROC: 02100Z9 Bypass Coronary Artery, One Artery from Left Internal Mammary, Open Approach (ICD-10-PCS; principal; 2016-08-06 07:15)
PROC: 02L70ZK Occlusion of Left Atrial Appendage, Open Approach (ICD-10-PCS; principal; 2016-08-06 07:15)
DX: I25.10 Atherosclerotic heart disease of native coronary artery without angina pectoris (principal); I47.2 Ventricular tachycardia; I44.2 Atrioventricular block, complete; I25.5 Ischemic cardiomyopathy; I12.9 Hypertensive chronic kidney disease with stage 1 through stage 4 chronic kidney disease, or unspecified chronic kidney disease; N18.9 Chronic kidney disease, unspecified; N40.0 Benign prostatic hyperplasia without lower urinary tract symptoms; E78.5 Hyperlipidemia, unspecified; I34.0 Nonrheumatic mitral (valve) insufficiency; Z95.0 Presence of cardiac pacemaker
CPT/HCPCS: 82947-QW; 97116-GP; 97163-GP; 97166-GO; 97530-GO; 97530-GP; 97535-GO; C1769; C1887; G8978-GP-CK; G8979-GP-CI; G8987-GO-CI; G8988-GO-CI; G8989-GO-CI; J0153; J0282; J0690; J1100; J1265; J1644; J1815; J1885; J2001; J2060; J2150; J2250; J2260; J2370; J2405; J2440; J2704; J2720; J2930; J3010; J7060; P9041; Q9967

== ENCOUNTER → 2016-08-16 | Outpatient (CLI) | payer OTHER | LOC: FIMAGING 09:57 | PROVIDERS: ATTEND Internal Medicine Cardiovascular Disease | DX: R09.02 Hypoxemia (principal); J98.11 Atelectasis; J90 Pleural effusion, not elsewhere classified; Z95.0 Presence of cardiac pacemaker; Z95.1 Presence of aortocoronary bypass graft ==

== ENCOUNTER → 2017-02-15 | Outpatient (CLI) | payer OTHER | LOC: CIMAGING 12:08 → EDSTATUS 12:20 | PROVIDERS: ATTEND Internal Medicine Cardiovascular Disease | DX: Z95.0 Presence of cardiac pacemaker (principal) | CPT/HCPCS: 71020-PO ==

== ENCOUNTER 2017-02-22 07:59 | Day surgery (SDC) | payer OTHER ==
[2017-02-22] MEDS ORDERED: ceFAZolin 2 GM/SWFI 2 GM/20 ML SYR IVP ONE (08:00)
[2017-02-22] MEDS ORDERED: BACITRACIN IRRIGATION/NS 50,000 UNITS/1,000 ML BTL IRR ONE (08:00)
[2017-02-22] MEDS ORDERED: DIAZEPAM 5 MG TAB PO ONE (08:00)
[2017-02-22] MEDS ORDERED: NS 1,000 ML IV ONE (08:00)
[2017-02-22] MEDS ORDERED: diphenhydrAMINE 25 MG CAP PO ONE (08:00)
--- NOTE | 2017-02-22 08:26 | CPEKG ---
Heart Rate: 65 RR Interval: 923 P-R Interval: 212 QRSD Interval: 146 QT Interval: 444 QTC Interval: 462 P [place]: 0 QRS [place]: 83 T Wave [place]: -73 EKG Severity - ABNORMAL ECG - EKG Impression: VENTRICULAR-PACED RHYTHM Electronically Signed By: Alfa Fung 22-Feb-2017 10:04:08
[2017-02-22] MEDS ORDERED: LIDOCAINE 1% 300 MG/30 ML SDV ONE (08:42)
[2017-02-22] MEDS ORDERED: MIDAZOLAM 2 MG/2 ML VIAL ONE (08:42)
[2017-02-22] MEDS ORDERED: fentaNYL 100 MCG/2 ML INJ ONE (08:42)
[2017-02-22] MEDS ORDERED: BUPIVACAINE 0.5% 30 ML SDV ONE (08:43)
[2017-02-22] MEDS ORDERED: LIDO/EPI 1% **for epidural** 30 ML SDV ONE (08:43)
[2017-02-22 08:45] LABS: % IMMATURE GRANULYOCYTES 0.2 % (0.0-1.1); ABSOLUTE IMMATURE GRANULOCYTES 0.01 10^3/uL (0.00-0.10); ADD DIFF? NO; ADD MORPH? NO; ADD SCAN? NO; ATYPICAL LYMPHOCYTE FLAG 0 (0-99); FRAGMENT RBC FLAG 0 (0-99); HEMATOCRIT 44.5 % (40.0-51.0); HEMOGLOBIN 15.8 g/dL (13.7-17.5); LEFT SHIFT FLG 0 (0-99); LIPEMIA HEMOLYSIS FLAG 90 (0-99); MEAN CELL HEMOGLOBIN 31.9 pg (27.9-34.1); MEAN CELL HEMOGLOBIN CONCENTR. 35.5 g/dL (32.4-36.7); MEAN CELL VOLUME 89.7 fL (81.5-99.8); MEAN PLATELET VOLUME 10.2 fL (8.7-11.7); PLATELET CLUMPS FLAG 10 (0-99); PLATELET COUNT 183 10^3/uL (150-400); RED BLOOD CELL COUNT 4.96 10^6/uL (4.40-6.38); RED CELL DISTRIBUTION WIDTH 13.6 % (11.5-15.2)
[2017-02-22 09:00] LABS: ANION GAP 12 mEq/L (8-16); CALCIUM 9.1 mg/dL (8.5-10.4); CARBON DIOXIDE 22 mEq/l (22-31); CHLORIDE 108 mEq/L (97-110); CREATININE 1.6 mg/dL (0.7-1.3); GLOMERULAR FILTRATION RATE 43; GLUCOSE 103 mg/dL (70-100); POTASSIUM 4.1 mEq/L (3.5-5.2); SODIUM 142 mEq/L (134-144)
[2017-02-22 09:06] LABS: INR 0.94 (0.83-1.16); PROTIME(PATIENT) 12.5 SEC (12.0-15.0)
--- NOTE | 2017-02-22 09:32 | PDHPUP ---
History & Physical Update H&P update statement: This history and physical update is based on an assessment of the patient which was completed after admission or registration (within 24 hours), but prior to the surgery/procedure. H&P update: H&P reviewed & patient examined, no change in patient's condition since H&P completed
--- NOTE | 2017-02-22 09:33 | PDPROPOC ---
Sedation Plan of Care Sedation Plan of Care: vital signs stable, mental status noted, patient educated of risks, benefits, alternatives, patient can tolerate sedation ASA Classification: ASA 2 Planned drugs: fentanyl, midazolam Mallampati Score: Class 1 Mallampati Reference Image: Patient passed 3-3-2 rule?: Yes
--- NOTE | 2017-02-22 12:50 | CPIP ---
[f rep st] INVASIVE CARDIAC PROCEDURE DATE OF PROCEDURE: 02/22/2017 INDICATIONS: The patient is a 72-year-old male with a history of a dual-chamber pacemaker implanted back in March of 2007. He has a history of high-grade AV block. His current device is at electiv e replacement indicator. PROCEDURE PERFORMED: Pacemaker generator change. TECHNIQUE: Following informed consent, in the fasting state, the patient was brought to cardiac cath eterization laboratory. Immediately prior to the procedure, prophylactic antibiotics were administer ed. 2% lidocaine was infiltrated in the skin overlying the previously placed device, and a #10 blade was used to make a 3 cm incision. Using blunt and sharp dissection, the capsule was identified, whi ch was opened sharply. The device was delivered from the field and the leads disconnected from the p acemaker. The leads were independently tested, with adequate capture and sensing. The pocket was ir rigated. The device was brought to the field. Both leads were identified by serial number and affix ed to the header according to brine maker guidelines of the device, and the redundant portions of kira th leads were then placed in the pocket, and the pocket closed with 3 layers, initially using 2 layer s of interrupted suture with 2-0 and 3-0 Vicryl, and finally running STRATAFIX for the skin. Steri-S trips and a dry dressing were applied. COMPLICATIONS: None DEVICE INFORMATION: The leads were implanted March 30, 2007. The right atrial lead is a [employer]tronic 4076, 52 cm lead, serial number [id number]. The right ventricular lead is a 4076, 58 cm lead, [id number]. Sensed P waves were 3.4 mV with sensed R waves of 4.6 mV. Capture in the atrium 0.5 msec, 0.6 V with a lead impedance of 466 ohms. In the ventricle, capture 0.4 msec, 0.7 V, lead impedance of 442 ohms . DISPOSITION: The patient will be recovered in CVC and discharged home later today. /[id number]/MODL
== END 2017-02-22 14:47 | disposition home or self-care (01) ==
LOC: FCATH 07:59
PROVIDERS: ATTEND Internal Medicine Cardiovascular Disease
PROC: 0JH606Z Insertion of Pacemaker, Dual Chamber into Chest Subcutaneous Tissue and Fascia, Open Approach (ICD-10-PCS; principal; 2017-02-22)
PROC: 0JPT0PZ Removal of Cardiac Rhythm Related Device from Trunk Subcutaneous Tissue and Fascia, Open Approach (ICD-10-PCS; principal; 2017-02-22)
DX: Z45.010 Encounter for checking and testing of cardiac pacemaker pulse generator [battery] (principal); I44.2 Atrioventricular block, complete; I25.10 Atherosclerotic heart disease of native coronary artery without angina pectoris; N40.0 Benign prostatic hyperplasia without lower urinary tract symptoms; N18.9 Chronic kidney disease, unspecified; E78.5 Hyperlipidemia, unspecified; I12.9 Hypertensive chronic kidney disease with stage 1 through stage 4 chronic kidney disease, or unspecified chronic kidney disease; I25.5 Ischemic cardiomyopathy; I34.0 Nonrheumatic mitral (valve) insufficiency; Z95.1 Presence of aortocoronary bypass graft
CPT/HCPCS: C1785; J0690; J2250; J3010

== ENCOUNTER → 2017-09-27 | Outpatient (CLI) | payer OTHER | LOC: CIMAGING 10:13 | PROVIDERS: ATTEND Physical Medicine & Rehabilitation | DX: M51.36 Other intervertebral disc degeneration, lumbar region (principal); M48.061 Spinal stenosis, lumbar region without neurogenic claudication; M51.37 Other intervertebral disc degeneration, lumbosacral region; M51.35 Other intervertebral disc degeneration, thoracolumbar region; M48.05 Spinal stenosis, thoracolumbar region; M48.07 Spinal stenosis, lumbosacral region | CPT/HCPCS: 72131-PO ==

== ENCOUNTER 2018-01-14 21:08 | Emergency (ER) | payer OTHER ==
[2018-01-14] MEDS ORDERED: SILVER NITRATE APPLICATOR 1 APPL TP ONE (21:12)
[2018-01-14] MEDS ORDERED: TRANEXAMIC ACID 1,000 MG/10 ML VIAL TP ONE (21:12)
[2018-01-14] MEDS ORDERED: OXYMETAZOLINE 30 ML NASAL SPRAY EACHNARE ONE ×2 (21:12)
[2018-01-14] MEDS ORDERED: COCAINE HCL 4% 4 ML BTL TP ONE (21:12)
--- NOTE | 2018-01-14 21:22 | EDPHY ---
H & P Time Seen by Provider: 01/14/18 21:11 HPI/ROS: CHIEF COMPLAINT: Epistaxis HISTORY OF PRESENT ILLNESS: Patient is a 73-year-old man who takes Plavix and aspirin for history of quadruple bypass who has had an intermittent nosebleed for the last 8 hr. It is coming from the left nostril. He states that he is getting over a cold and has been blowing his nose hard for the last few days. Today it started bleeding. No trauma. No fever. He arrives with a packing in his left nares and bleeding controlled. Severity: Moderate Modifying factors: Improved with packing REVIEW OF SYSTEMS: Constitutional: denies: chills, fever, recent illness, recent injury EENTM: See HPI denies: blurred vision, double vision, nose congestion Respiratory: denies: cough, shortness of breath Cardiac: denies: chest pain, irregular heart rate, lightheadedness, palpitations Gastrointestinal/Abdominal: denies: abdominal pain, diarrhea, nausea, vomiting, blood streaked stools Genitourinary: denies: dysuria, frequency, hematuria, pain Musculoskeletal: denies: joint pain, muscle pain Skin: denies: lesions, rash, jaundice, bruising Neurological: denies: headache, numbness, paresthesia, tingling, dizziness, weakness Hematologic/Lymphatic: denies: blood clots, easy bleeding, easy bruising Immunologic/allergic: denies: HIV/AIDS, transplant 10 systems reviewed and negative except as noted EXAM: GENERAL: Well-appearing, well-nourished and in no acute distress. HEAD: Atraumatic, normocephalic. EYES: Pupils equal round and reactive to light, extraocular movements intact, sclera anicteric, conjunctiva are normal. ENT: TMs normal, left nares with anterior septal bleeding mild, oropharynx clear without exudates. Moist mucous membranes. NECK: Normal range of motion, supple without lymphadenopathy or JVD. LUNGS: Breath sounds clear to auscultation bilaterally and equal. No wheezes rales or rhonchi. HEART: Regular rate and rhythm without murmurs, rubs or gallops. ABDOMEN: Soft, nontender, normoactive bowel sounds. No guarding, no rebound. No masses appreciated. BACK: No CVA tenderness, no spinal tenderness, step-offs or deformities EXTREMITIES: Normal range of motion, no pitting or edema. No clubbing or cyanosis. NEUROLOGICAL: Cranial nerves II through XII grossly intact. Normal speech, normal gait. 5/5 strength, normal movement in all extremities, normal sensation , normal reflexes PSYCH: Normal mood, normal affect. SKIN: Warm, dry, normal turgor, no visible rashes or lesions. Source: Patient, Family - Personal History Tetanus Vaccine Date: within 10 years - Medical/Surgical History Hx Asthma: No Hx Chronic Respiratory Disease: No Hx Diabetes: No Hx Cardiac Disease: Yes Hx Renal Disease: Yes Hx Cirrhosis: No Hx Alcoholism: No Hx HIV/AIDS: No Hx Splenectomy or Spleen Trauma: No Other PMH: Quadruple bypass, pace maker, HTN, high cholesterol, CKD stage 3, inguinal hernia repair, BPH, hx of kidney stones, tonsils removed - Family History Significant Family History: No pertinent family hx - Social History Smoking Status: Former smoker Alcohol Use: Sober Drug Use: None Constitutional: Initial Vital Signs Temperature (C) 36.7 C 01/14/18 21: Heart Rate 90 01/14/18 21: Respiratory Rate 18 01/14/18 21:19 Blood Pressure 162/100 H 01/14/18 21:19 O2 Sat (%) 95 01/14/18 21:19 O2 Delivery Mode Room Air Allergies/Adverse Reactions: No Known Allergies Allergy (Verified 02/21/17 13:52) Home Medications: Medication Instructions Recorded Aspirin [Aspirin 81mg (*)] 81 mg PO HS 08/04/16 Cholecalciferol Vit D3 [Vitamin D3 1,000 units PO HS 08/04/16 (*)] Herbals/Supplements -Info Only 1 ea PO DAILY 08/04/16 Multivitamins [Multivitamin (*)] 1 each PO HS 08/04/16 Tamsulosin HCl [Flomax 0.4 MG (*)] 0.8 mg PO HS 08/04/16 Acetaminophen [Tylenol 325mg (*)] 325 - 650 mg PO Q4HRS PRN #0 tab 08/10/16 Atorvastatin Calcium [Lipitor 80 80 mg PO HS 02/22/17 mg] Vitamin B Complex [Super B-50 1 each PO HS 02/22/17 Complex] Clopidogrel Bisulfate [Plavix] 01/14/18 Medical Decision Making Procedures: The patient's nares were instilled with Afrin and packed with a cotton ball soaked in TXA. Bleeding was controlled with this. He was then swabbed with cocaine for anesthesia and cauterized with silver nitrate. Bleeding controlled. ED Course/Re-evaluation: 10:20 p.m. the patient was able to road test without rebleeding. He is eager to go home. We discussed indications for returning. Differential Diagnosis: Partial list of the Differential diagnosis considered include but were not limited to; anterior epistaxis, posterior epistaxis and although unlikely based on the history and physical exam, I also considered foreign body, trauma, infection. I discussed these differential diagnoses and the plan with the patient as well as the usual and expected course. The patient understands that the diagnosis is provisional and that in medicine we are not always correct and that further workup is often warranted. Usual and customary warnings were given. All of the patient's questions were answered. The patient was instructed to return to the emergency department should the symptoms at all worsen or return, otherwise to followup with the physician as we discussed. - Data Points Medications Given: Discontinued Medications Cocaine HCl (Cocaine Hcl) 1 artemio TP EDNOW ONE Stop: 01/14/18 21:13 Last Admin: 01/14/18 22:03 Dose: 1 artemio Oxymetazoline HCl (Afrin Nasal Victor) 2 sprays EACHNARE EDNOW ONE Stop: 01/14/18 21:13 Last Admin: 01/14/18 21:24 Dose: 2 sprays Oxymetazoline HCl (Afrin Nasal Victor) 2 sprays EACHNARE EDNOW ONE Stop: 01/14/18 21:13 Last Admin: 01/14/18 21:25 Dose: Not Given Silver Nitrate/Potassium Nitrate (Silver Nitrate Applicator) 1 each TP EDNOW ONE Stop: 01/14/18 21:13 Last Admin: 01/14/18 22:03 Dose: 1 each Tranexamic Acid (Cyklokapron) 500 mg TP EDNOW ONE Stop: 01/14/18 21:13 Last Admin: 01/14/18 21:24 Dose: 500 mg Departure - Departure Disposition: Home, Routine, Self-Care Clinical Impression: Acute anterior epistaxis Condition: Fair Instructions: Nosebleed (ED) Additional Instructions: If your nose begins to bleed at home try using the Afrin as discussed and the nasal clamp. If this does not work return to the emergency department. Referrals: Edenilson Bae MD [Medical Doctor] - 2-3 days, if not improved
[2018-01-14 22:06] VITALS: BP 137/87
== END 2018-01-14 22:23 | disposition home or self-care (01) ==
LOC: CED 21:08
PROC: 2Y41X5Z Packing of Nasal Region using Packing Material (ICD-10-PCS; principal; 2018-01-14)
DX: R04.0 Epistaxis (principal); I12.9 Hypertensive chronic kidney disease with stage 1 through stage 4 chronic kidney disease, or unspecified chronic kidney disease; Z95.1 Presence of aortocoronary bypass graft; N18.3 Chronic kidney disease, stage 3 (moderate); N40.0 Benign prostatic hyperplasia without lower urinary tract symptoms; Z79.82 Long term (current) use of aspirin; Z95.0 Presence of cardiac pacemaker; Z79.02 Long term (current) use of antithrombotics/antiplatelets

== ENCOUNTER → 2018-06-06 | Outpatient (CLI) | payer OTHER | LOC: FIMAGING 09:02 | PROVIDERS: ATTEND Physician Assistant | DX: M51.36 Other intervertebral disc degeneration, lumbar region (principal); M51.26 Other intervertebral disc displacement, lumbar region; M48.061 Spinal stenosis, lumbar region without neurogenic claudication; M99.73 Connective tissue and disc stenosis of intervertebral foramina of lumbar region ==